=== PATIENT | male | born 2005 | race Caucasian/White ===

== ENCOUNTER 2025-05-04 11:49 | Emergency (ER) | payer BC ==
[~2025-05-04] VITALS: Ht 185.4 cm; Wt 81.6 kg
[2025-05-04] MEDS ORDERED: ONDANSETRON HCL/PF 4 MG/2 ML VIAL ONE (13:12)
[2025-05-04] MEDS: IV LR 1000 ML 1,000 ML BAG IV ONE (13:27)
[2025-05-04] MEDS: ONDANSETRON HCL/PF 4 MG/2 ML VIAL IVP ONE (13:28)
[2025-05-04 13:33] LABS: PLATELET COUNT (AUTO) 194 K/uL (150-450); RED BLOOD CELL COUNT(AUTO) 5.26 MIL/uL (4.5-6.0); RED CELL DISTRIBUTION WIDTH 14.2 % (11.5-15.0); WHITE BLOOD COUNT (AUTO) 12.8 K/uL (4.3-11.0)
[2025-05-04 13:54] LABS: CALCIUM, SERUM 9.2 mg/dL (8.5-10.1); CREATININE 1.2 mg/dL (0.6-1.3); SODIUM SERUM 140.0 mmol/L (136-145); UREA NITROGEN, BLOOD 24.0 mg/dL (7-18)
[2025-05-04 13:56] LABS: ASPARTATE AMINOTRANSFERASE 71.0 U/L (15-37); TOTAL PROTEIN, SERUM 7.5 g/dL (6.4-8.2)
[2025-05-04 14:37] LABS: APPEARANCE,URINE CLEAR (CLEAR); BLOOD, URINE NEGATIVE Ery/uL (NEGATIVE); LEUKOCYTE ESTERASE ,URINE NEGATIVE (NEGATIVE); NITRITE, URINE NEGATIVE (NEGATIVE); UGLUCOSE NEGATIVE (NEGATIVE)
[2025-05-04 14:57] LABS: ADD URINE CULTURE NO; URINE AMORPHOUS URATE Few /HPF (None Seen)
[2025-05-04 15:09] VITALS: BP 120/63; TEMP 98.5; O2SAT 98
== END 2025-05-04 15:09 | disposition home or self-care (01) ==
LOC: ER 11:49
DX: F10.10 Alcohol abuse, uncomplicated (principal); R11.2 Nausea with vomiting, unspecified
CPT/HCPCS: 99283; 96374; 96361; 85025; 80048; 87086; 83690; 80076; 81001; 36415; J2405; J7120 ×2; A4223